=== PATIENT | male | born 1980 ===

== ENCOUNTER 2017-07-20 17:14 | Emergency (ER) | payer MEDICAID ==
[2017-07-20 17:22] VITALS: TEMP 97.7
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
[2017-07-20 18:40] VITALS: BP 148/89; PULSE 94; RESP 18; O2SAT 99
--- NOTE | 2017-07-21 08:55 | RAD ---
PROCEDURE: Left Foot Radiographs. HISTORY: Pain and swelling COMPARISON: None. FINDINGS: BONES: Bone alignment and mineralization are normal. There is no acute displaced fracture or bone destruction in the foot. There is an old fracture deformity in the TLS. JOINTS: Normal. SOFT TISSUES: Normal. OTHER FINDINGS: None. IMPRESSION: No acute fracture or dislocation in the foot. Old fracture deformity in the talus.
== END 2017-07-20 18:50 | disposition home or self-care (01) ==
LOC: ED 17:14
DX: M79.672 Pain in left foot (principal); F17.210 Nicotine dependence, cigarettes, uncomplicated
CPT/HCPCS: 73630; 82948; 96372; 99284; J1885